=== PATIENT | female | born 1980 | race Caucasian/White ===

== ENCOUNTER 2018-02-18 11:51 | Emergency (ER) | payer BC, OTHER ==
[~2018-02-18] VITALS: Ht 177.8 cm; Wt 120.2 kg
[~2018-02-18 11:51] MED LIST: CYCLOBENZAPRIN7.5 MG ORAL; CYCLOBENZAPRINE10 MG ORAL; GABAPENTIN600 MG ORAL; METFORMIN HCL1000 M1 ORAL; NORCO 10-325 T1 EACH ORAL; NORCO 5-325 TA1 EACH ORAL; TRAMADOL HCL E200 MG ORAL
[2018-02-18 12:08] VITALS: BP 126/78
[2018-02-18] MEDS ORDERED: Ketorolac 30mg Inj IV ONE (12:15)
[2018-02-18 12:34] VITALS: BP 124/75
[2018-02-18 12:41] LABS: BASOPHILS % (AUTO) 0.9 % (0.0-2.0); EOSINOPHILS % (AUTO) 11.6 % (0.0-3.0); HEMATOCRIT 42.9 % (37.0-47.0); HEMOGLOBIN 14.5 G/DL (12.0-16.0); LYMPHOCYTES % (AUTO) 34.2 % (20.0-45.0); MEAN CORPUSCULAR VOLUME 94 FL (80-99); MONOCYTES % (AUTO) 7.5 % (1.0-10.0); NEUTROPHILS % (AUTO) 45.8 % (45.0-75.0); PLATELET COUNT 234 K/UL (150-450); RED BLOOD COUNT 4.56 M/UL (4.20-5.40); RED CELL DISTRIBUTION WIDTH 10.7 % (11.6-14.8); WHITE BLOOD COUNT 9.6 K/UL (4.8-10.8)
[2018-02-18 12:47] LABS: APPEARANCE,URINE CLOUDY; BILIRUBIN, URINE NEGATIVE (NEGATIVE); GLUCOSE, URINE (UA) NEGATIVE (NEGATIVE); KETONES,URINE NEGATIVE (NEGATIVE); LEUKOCYTE ESTERASE ,URINE 1+ (NEGATIVE); NITRITE,URINE POSITIVE (NEGATIVE); PH,URINE 5 (4.5-8.0); PROTEIN,URINE NEGATIVE (NEGATIVE); UROBILINOGEN,URINE NORMAL MG/DL (0.0-1.0)
[2018-02-18 12:54] LABS: COLOR,URINE YELLOW
[2018-02-18 12:58] LABS: INR 0.9 (0.9-1.1)
[2018-02-18] MEDS ORDERED: fentaNYL 100 mcg/2 mL IV ONE (13:00)
[2018-02-18 13:07] LABS: ANION GAP 11 mmol/L (5-15); BLOOD UREA NITROGEN 14 mg/dL (7-18); CALCIUM 8.7 MG/DL (8.5-10.1); CARBON DIOXIDE 27 MMOL/L (21-32); CHLORIDE 102 MMOL/L (98-107); CREATININE 0.8 MG/DL (0.55-1.30); POTASSIUM 3.4 MMOL/L (3.5-5.1); SODIUM 140 MMOL/L (136-145)
[2018-02-18 13:19] LABS: ALANINE AMINOTRANSFERASE 50 U/L (12-78); ALBUMIN 3.7 G/DL (3.4-5.0); ALKALINE PHOSPHATASE 134 U/L (46-116); ASPARTATE AMINO TRANSFERASE 30 U/L (15-37); BILIRUBIN,TOTAL 0.3 MG/DL (0.2-1.0); CREATINE KINASE 197 U/L (26-308)
[2018-02-18 13:40] VITALS: BP 129/78
[2018-02-18 14:05] VITALS: BP 129/78
--- NOTE | 2018-02-18 14:18 | Diagnostic Imaging Report ---
Indication: Cough Technique: One view of the chest Comparison: none Findings: Lungs and pleural spaces are clear. Heart size is upper limits normal . There is cervical spine fusion hardware Impression: No acute process
[2018-02-18] MEDS ORDERED: cefTRIAXone 1 GM in NS 55 ML IVPB ONE (15:00)
[2018-02-18 15:36] VITALS: BP 118/69
--- NOTE | 2018-02-18 15:42 | Emergency Room Report ---
History of Present Illness General Chief Complaint: Chest Pain Source: Patient Present Illness HPI Patient started having left-sided chest pain that started this morning. She feels the pain is sharp and also aching - radiating towards her shoulder. Severe. She denies any productive cough although she does have phlegm that has been either clear or somewhat yellow without any blood. She denies any calf pain or edema. She took Percocet this morning and it is helped the pain ( apparently belongs to ). Initially was 05/05/10 and now to 04/04. The patient has chronic back problems. She has an appointment to see a pain management MD. She also has chronic L neck pain. She feels muscle spasms there and believes this is contributing the the pain in her chest. Of the patient's post hysterectomy for ovarian endometrial cancer. This is being followed. She is left with one ovary at this time. She was taking metformin for the polycystic ovary disease and has stopped. She denies diabetes. The patient has sweats at night. She denies fevers or chills. No change in bowels. No dysuria. 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 Last Menstrual Period: hyst Now: No Reviewed Nursing Documentation: PMH: Agreed; PSxH: Agreed Nursing Documentation-PMH Past Medical History: No History, Except For Hx Cardiac Problems: No - hypothyroid Hx Cancer: No Hx Neurological Problems: No Review of Systems All Other Systems: negative except mentioned in HPI Physical Exam Vital Signs Date Time Temp Pulse Resp B/P (MAP) Pulse Ox O2 Delivery O2 Flow Rate FiO2 02/18/18 11:52 98.4 79 20 122/80 98 98.4 02/18/18 12:08 Room Air Sp02 EP Interpretation: reviewed, normal General Appearance: well appearing, no apparent distress, GCS 15 Head: normocephalic Eyes: bilateral eye normal inspection, bilateral eye PERRL ENT: moist mucus membranes Neck: full range of motion, supple, no bony tend, tender - L lateral Respiratory: lungs clear, normal breath sounds, other - chest wall tenderness L pectoralis laterally Cardiovascular #1: regular rate, rhythm Cardiovascular #2: 2+ radial (R) Gastrointestinal: normal inspection, normal bowel sounds, non tender, no mass, non-distended Genitourinary: no CVA tenderness Musculoskeletal: back normal, gait/station normal, normal range of motion Neurologic: alert, oriented x3, grossly normal Psychiatric: depressed affect Skin: normal inspection, warm/dry Medical Decision Making Diagnostic Impression: Primary Impression: Chest wall pain Additional Impression: UTI (urinary tract infection) Qualified Codes: N30.00 - Acute cystitis without hematuria ER Course Patient presents with pleuritic left-sided chest pain. Differential includes acute myocardial infarction, costochondritis, pleurisy, pneumothorax, pneumonia , pectoralis strain amongst others. Evaluation will be with EKG, chest x-ray and labs. Based on the physical exam suspicion for pulmonary embolus is extremely low. EKG is normal sinus rhythm and normal axis normal intervals no acute changes. Chest x-ray heart size is normal no infiltrates no pneumothorax. Labs are remarkable for normal troponin. There is pyuria. The patient is treated with Toradol initially. She states that the pain was not changed by this at all. Fentanyl was given after this. She states the pain was down to 4/10. Rocephin was given for the urinary tract infection. There is no apparent emergent condition at this time and the patient's pain is relatively well controlled. The patient is stable for outpatient observation and treatment. Discussed treatment plan with patient and her . Laboratory Tests Test 02/18/18 12:15 02/18/18 12:20 Urine Color Yellow Urine Appearance Cloudy Urine pH 5 (4.5-8.0) Urine Specific [place] 1.020 (1.005-1.035) Urine Protein Negative (NEGATIVE) Urine Glucose (UA) Negative (NEGATIVE) Urine Ketones Negative (NEGATIVE) Urine Occult Blood Negative (NEGATIVE) Urine Nitrite Positive (NEGATIVE) H Urine Bilirubin Negative (NEGATIVE) Urine Urobilinogen Normal MG/DL (0.0-1.0) Urine Leukocyte Esterase 1+ (NEGATIVE) H Urine RBC 0-2 /HPF (0 - 2) Urine WBC 10-15 /HPF (0 - 2) H Urine Squamous Epithelial Cells Many /LPF (NONE/OCC) H Urine Bacteria Many /HPF (NONE) H White Blood Count 9.6 K/UL (4.8-10.8) Red Blood Count 4.56 M/UL (4.20-5.40) Hemoglobin 14.5 G/DL (12.0-16.0) Hematocrit 42.9 % (37.0-47.0) Mean Corpuscular Volume 94 FL (80-99) Mean Corpuscular Hemoglobin 31.9 PG (27.0-31.0) H Mean Corpuscular Hemoglobin Concent 33.8 G/DL (32.0-36.0) Red Cell Distribution Width 10.7 % (11.6-14.8) L Platelet Count 234 K/UL (150-450) Mean Platelet Volume 8.6 FL (6.5-10.1) Neutrophils (%) (Auto) 45.8 % (45.0-75.0) Lymphocytes (%) (Auto) 34.2 % (20.0-45.0) Monocytes (%) (Auto) 7.5 % (1.0-10.0) Eosinophils (%) (Auto) 11.6 % (0.0-3.0) H Basophils (%) (Auto) 0.9 % (0.0-2.0) Prothrombin Time 9.8 SEC (9.30-11.50) Prothrombin Time INR 0.9 (0.9-1.1) PTT 25 SEC (23-33) Sodium Level 140 MMOL/L (136-145) Potassium Level 3.4 MMOL/L (3.5-5.1) L Chloride Level 102 MMOL/L (98-107) Carbon Dioxide Level 27 MMOL/L (21-32) Anion Gap 11 mmol/L (5-15) Blood Urea Nitrogen 14 mg/dL (7-18) Creatinine 0.8 MG/DL (0.55-1.30) Estimate Glomerular Filtration Rate > 60 mL/min (>60) Glucose Level 106 MG/DL (74-106) Calcium Level 8.7 MG/DL (8.5-10.1) Total Bilirubin 0.3 MG/DL (0.2-1.0) Aspartate Amino Transferase (AST) 30 U/L (15-37) Alanine Aminotransferase (ALT) 50 U/L (12-78) Alkaline Phosphatase 134 U/L (46-116) H Total Creatine Kinase 197 U/L (26-308) Troponin I 0.000 ng/mL (0.000-0.056) Pro-B-Type Natriuretic Peptide 95 pg/mL (0-125) Total Protein 7.5 G/DL (6.4-8.2) Albumin 3.7 G/DL (3.4-5.0) Globulin 3.8 g/dL Albumin/Globulin Ratio 1.0 (1.0-2.7) EKG Diagnostic Results Rate: normal Rhythm: NSR ST Segments: no acute changes Rhythm Strip Diag. Results EP Interpretation: yes Rhythm: NSR, no PVC's, no ectopy Chest X-Ray Diagnostic Results Chest X-Ray Diagnostic Results : Chest X-Ray Ordered: Yes # of Views/Limited/Complete: 1 View Indication: Chest Pain Interpretation: no consolidation, no effusion, no pneumothorax, no acute cardiopulmonary disease Impression: No acute disease Electronically Signed by: Electronically signed by Leonardo Anders MD Last Vital Signs Date Time Temp Pulse Resp B/P (MAP) Pulse Ox O2 Delivery O2 Flow Rate FiO2 02/18/18 15:52 98.4 70 17 118/69 100 Room Air 98.4 Status: improved Disposition: HOME, SELF-CARE Condition: Improved Scripts Nitrofurantoin Monohyd/M-Cryst* (MACROBID 100 MG*) 100 Mg Capsule 100 MG ORAL EVERY 12 HOURS, #14 CAP Prov: Leonardo Anders M.D. 02/18/18 Cyclobenzaprine Hcl* (FLEXERIL*) 10 Mg Tablet 10 MG ORAL THREE TIMES A DAY, #12 TAB Prov: Leonardo Anders M.D. 02/18/18 Naproxen (Naproxen) 250 Mg Tablet 250 MG PO TID, #20 TAB Prov: Leonardo Anders M.D. 02/18/18 Hydrocodone Bit/Acetaminophen 5-325* (NORCO 5-325*) 1 Each Tablet 1 TAB ORAL Q6H PRN for For Pain, #16 TAB 0 Refills Prov: Leonardo Anders M.D. 02/18/18 Referrals: NON PHYSICIAN (PCP) Leonardo Anders M.D. Feb 18, 2018 15:42
[2018-02-18] MEDS ORDERED: CYCLOBENZAPRINE10 MG ORAL (15:45)
[2018-02-18] MEDS ORDERED: NORCO 5-325 TA1 EACH ORAL (15:45)
[2018-02-18] MEDS ORDERED: NAPROXEN250 M1 PO (15:45)
[2018-02-18] MEDS ORDERED: NITROFURANTOIN100 M2 ORAL (15:51)
[2018-02-18 15:52] VITALS: BP 118/69
--- NOTE | 2018-02-19 15:07 | Cardiology Report ---
APPROVED REPORT EKG Measurement Heart [id number] Normal sinus rhythm Normal ECG
== END 2018-02-18 16:01 | disposition home or self-care (01) ==
LOC: EMR 12:27
DX: R07.89 Other chest pain (principal); N39.0 Urinary tract infection, site not specified; E03.9 Hypothyroidism, unspecified; Z90.710 Acquired absence of both cervix and uterus; Z85.43 Personal history of malignant neoplasm of ovary
CPT/HCPCS: 36415; 71045; 80053; 81003; 82550; 83880; 84484; 85025; 85610; 85730; 87086; 87181; 93005; 96365; 96374; 96375; 99284; J0696; J1885; J2405; J3010